=== PATIENT | female | born 1955 | race Caucasian/White ===

== ENCOUNTER 2022-08-31 08:09 | Day surgery (SDC) | payer OTHER ==
[2022-08-26 17:37] VITALS: BMI 21.5
[2022-08-31] MEDS ORDERED: OFLOXACIN 0.3% OPHTHALMIC SOLUTION 5 ML BOTTLE ONE (08:23)
[2022-08-31] MEDS ORDERED: TROPICAMIDE 1% OPHTH SOLN 15 ML BOTTLE ONE (08:23)
[2022-08-31] MEDS ORDERED: KETOROLAC TROMETHAMINE 0.5% EYE DROP 1 DROP DROPS ONE (08:23)
[2022-08-31] MEDS ORDERED: PHENYLEPHRINE 2.5% OPTHALMIC DROP 2ML BOTTLE ONE (08:23)
[2022-08-31] MEDS ORDERED: CYCLOPENTOLATE HCL 1% OPHTH SOLN 2 ML BOTTLE ONE (08:23)
[2022-08-31 08:38] VITALS: TEMP 97.1
[2022-08-31] MEDS: PHENYLEPHRINE 2.5% OPHTH SOLN 15 ML BOTTLE OS SCH ×3 (08:50→09:00)
[2022-08-31] MEDS: KETOROLAC TROMETHAMINE 0.5% EYE DROP 1 DROP DROPS OS SCH ×3 (08:50→09:00)
[2022-08-31] MEDS: TROPICAMIDE 1% OPHTH SOLN 15 ML BOTTLE OS SCH ×3 (08:50→09:00)
[2022-08-31] MEDS: OFLOXACIN 0.3% OPHTHALMIC SOLUTION 5 ML BOTTLE OS SCH ×3 (08:50→09:00)
[2022-08-31] MEDS: CYCLOPENTOLATE HCL 1% OPHTH SOLN 2 ML BOTTLE OS SCH ×3 (08:50→09:00)
[2022-08-31] MEDS ORDERED: BACITRACIN/POLYMYXIN OPH OINT 3.5 GM TUBE ONE (09:07)
[2022-08-31] MEDS ORDERED: BETAXOLOL HCL 0.25% OPHTHALMIC 10 ML DROPSBTL ONE (09:07)
[2022-08-31] MEDS ORDERED: EPINEPHrine/PF 1 MG/1 ML (1:1,000) AMPULE ONE (09:07)
[2022-08-31] MEDS ORDERED: ACETYLCHOLINE 1:100 INTRA-OCUL 20 MG/2 ML KIT ONE (09:08)
[2022-08-31] MEDS ORDERED: EPI-SHUGARCAINE (EPINEPHRINE 0.025% & LIDOCAINE-PF 0.75%) 4ML ONE (09:08)
[2022-08-31] MEDS ORDERED: BSS (NA/CA/MG/K) BALANCED SALT SOLUTION OPHTH SOLN 15 ML BOTTLE ONE (09:08)
[2022-08-31] MEDS ORDERED: NEO/POLYMYX B SULF/DEXAMETH OPHTHALMIC 5ML BOTTLE ONE (09:08)
[2022-08-31] MEDS ORDERED: TETRACAINE 0.5% OPHTH SOLN 2 ML BOTTLE ONE (09:08)
[2022-08-31] MEDS ORDERED: POVIDONE-IODINE 5% OPHTHALMIC PREP 30 ML SOLUTION ONE (09:08)
[2022-08-31] MEDS ORDERED: ACETAMINOPHEN 325 MG TABLET (FP) PO PRN (10:54)
[2022-08-31 11:01] VITALS: PULSE 72; RESP 18
[2022-08-31 11:19] VITALS: BP 120/66
== END 2022-08-31 11:41 | disposition home or self-care (01) ==
LOC: FASU 08:09
PROVIDERS: ATTEND Ophthalmology
PROC: 08RK3JZ Replacement of Left Lens with Synthetic Substitute, Percutaneous Approach (ICD-10-PCS; principal; 2022-08-31 10:30)
DX: H25.12 Age-related nuclear cataract, left eye (principal)
CPT/HCPCS: 66984; V2632

== ENCOUNTER 2022-09-21 06:55 | Day surgery (SDC) | payer OTHER ==
[2022-09-16 14:04] VITALS: BMI 21.5
[2022-09-21] MEDS ORDERED: BACITRACIN/POLYMYXIN OPH OINT 3.5 GM TUBE ONE (07:11)
[2022-09-21] MEDS ORDERED: EPI-SHUGARCAINE (EPINEPHRINE 0.025% & LIDOCAINE-PF 0.75%) 4ML ONE (07:11)
[2022-09-21] MEDS ORDERED: EPINEPHrine/PF 1 MG/1 ML (1:1,000) AMPULE ONE (07:11)
[2022-09-21] MEDS ORDERED: BETAXOLOL HCL 0.25% OPHTHALMIC 10 ML DROPSBTL ONE (07:11)
[2022-09-21] MEDS ORDERED: TETRACAINE 0.5% OPHTH SOLN 2 ML BOTTLE ONE (07:11)
[2022-09-21] MEDS ORDERED: POVIDONE-IODINE 5% OPHTHALMIC PREP 30 ML SOLUTION ONE (07:11)
[2022-09-21] MEDS ORDERED: BSS (NA/CA/MG/K) BALANCED SALT SOLUTION OPHTH SOLN 15 ML BOTTLE ONE (07:12)
[2022-09-21] MEDS ORDERED: NEO/POLYMYX B SULF/DEXAMETH OPHTHALMIC 5ML BOTTLE ONE (07:12)
[2022-09-21] MEDS ORDERED: PHENYLEPHRINE 2.5% OPTHALMIC DROP 2ML BOTTLE ONE (07:16)
[2022-09-21] MEDS ORDERED: TROPICAMIDE 1% OPHTH SOLN 15 ML BOTTLE ONE (07:16)
[2022-09-21] MEDS: CYCLOPENTOLATE HCL 1% OPHTH SOLN 2 ML BOTTLE OD SCH ×3 (07:20→07:30)
[2022-09-21] MEDS: PHENYLEPHRINE 2.5% OPHTH SOLN 15 ML BOTTLE OD SCH ×3 (07:20→07:30)
[2022-09-21] MEDS: TROPICAMIDE 1% OPHTH SOLN 15 ML BOTTLE OD SCH ×3 (07:20→07:30)
[2022-09-21] MEDS: OFLOXACIN 0.3% OPHTHALMIC SOLUTION 5 ML BOTTLE OD SCH ×3 (07:20→07:30)
[2022-09-21] MEDS: KETOROLAC TROMETHAMINE 0.5% EYE DROP 1 DROP DROPS OD SCH ×3 (07:20→07:30)
[2022-09-21] MEDS ORDERED: MIDAZOLAM HCL 2 MG/2 ML SINGLE DOSE VIAL ONE (08:15)
[2022-09-21] MEDS ORDERED: ACETAMINOPHEN 325 MG TABLET (FP) PO PRN (09:04)
[2022-09-21 09:11] VITALS: RESP 18; TEMP 97.8
[2022-09-21 09:35] VITALS: BP 110/74; PULSE 68
== END 2022-09-21 09:37 | disposition home or self-care (01) ==
LOC: FASU 06:55
PROVIDERS: ATTEND Ophthalmology
PROC: 08RK3JZ Replacement of Left Lens with Synthetic Substitute, Percutaneous Approach (ICD-10-PCS; principal; 2022-09-21 08:41)
DX: H25.11 Age-related nuclear cataract, right eye (principal)
CPT/HCPCS: 66984; V2632